=== PATIENT | male | born 2000 | race Caucasian/White ===

== ENCOUNTER 2019-10-16 08:21 | Emergency (ER) | payer BC, MEDICAID, SELFPAY ==
[2019-10-16 08:23] VITALS: BP 145/97; PULSE 110; RESP 16; TEMP 36.2; O2SAT 96; BMI 34.3
--- NOTE | 2019-10-16 08:34 | ED.DCSUM_ITS ---
History of Present Illness Chief Complaint: Wound Informant: Patient, Family Limited: - - MRDD Occurred: Days Mechanism/Context: - - Bite Onset: Days Narrative: Patient is a 19-year-old male with MRDD and autism presenting with a self- inflicted bite wound to his right wrist. Mother states that he has a history of biting his wrist. For the past 3 days he has been biting his wrist more aggres sively. They have tried keeping it bandaged to let it heal but he has been persistent. No reported fever or any other symptoms. Mother went to urgent care to have it checked out and they were concerned and sent him to the emergency room for further evaluation. Mother not sure when his last tetanus was. No other complaints or concerns at this time. Tetanus Immunization: Unknown Past Medical History - Allergies and Home Meds Allergies/Adverse Reactions: Allergies No Known Allergies Allergy (Verified 10/16/19 08:22) Primary Care Physician: Joseph Mccarthy MD [Primary Care Provider] - Past Medical History: - - Autism, developmental delay Surgical History: no surgical history Lives: With Family Smoking Status: Never smoker Alcohol: None Drugs: None Review of Systems General: Denies: Chills, Fever, Sweats Cardiovascular: Denies: Chest pain, Palpitations Respiratory: Denies: Dyspnea, Cough Gastrointestinal: Denies: Abdominal pain, Nausea, Vomiting, Diarrhea Genitourinary: Denies: Dysuria, Frequency Musculoskeletal: Denies: Back pain, Extremity Pain Skin: Reports: Wounds - right wrist . Denies: Rash Neurological: Denies: Headache, Weakness, Numbness Physical Exam Vital Signs/Narrative: Vital Signs Temp Pulse Resp BP Pulse Ox 10/16/19 08:23 97.2 F L 110 H 16 145/97 H 96 Inital Vital Signs reviewed: Yes Right Forearm: Negative for: Contusion, Deformity, Edema, Hematoma, Limited ROM Right Wrist: Abrasion - 3 cm x 1 cm ulcerated wound over the radial aspect of the right wrist/distal forearm. Mild surrounding erythema with granulomatous tissue over the wound. No associated drainage, fluctuance or warmth. No tenderness to palpation.. Negative for: Deformity, Edema, Hematoma, Limited ROM Right Hand: Negative for: Abrasion, Deformity, Edema, Hematoma, Limited ROM General: Well nourished, Well developed Head: Normocephalic, Atraumatic ENT: No Trauma, Moist Mucous Membranes Neck: Nontender, Full ROM Cardiovascular: Regular rate, Regular rhythm, No murmurs Respiratory: No distress, CTA bilaterally, Chest nontender Back: Nontender Skin: Normal color, No rash, - - See above for wound description Neurological: Alert, Cranial nerves II-XII grossly intact, Normal Strength, Normal Sensation Psychological: Normal affect Diagnostic/Tx/Re-eval - Medical Decision Making Patient is evaluated for self-inflicted bite wound to his right wrist. It does not appear infected however patient will be empirically treated with antibiotics. The wound is slightly hypertrophied from repetitive biting and likely scar tissue. Patient is neuro vastly intact. Patient is slightly tachycardic in the emergency room. I suspect this is secondary to agitation. His tetanus will be updated. He is given first dose of Augmentin in the emergency room. Mother is counseled on wound care keeping it clean and trying to prevent him from biting it further. Mother is counseled on signs symptoms require return the emergency room. She verbalizes agreement understand this plan. Patient discharged home in stable condition. ED Disposition - Plan for ED Patient: Disposition: Home or Assisted Living Diagnosis: Human bite of forearm, Injury, self-inflicted Instructions: Human Bite Prescriptions: Amoxicillin/Potassium Clav [Augmentin 875-125 Tablet] 1 ea PO BID #20 tab Prescription Printed Referrals: Joseph Mccarthy MD [Primary Care Provider] - Additional Instructions: Try to keep the wound clean and covered. At this time it does not appear infected however he will be given antibiotics to prevent further infection. Follow-up with primary care doctor.
[2019-10-16] MEDS: Diphth,Pertuss(Acell),Tet Vac 0.5 ML Vial IM (08:42)
[2019-10-16] MEDS: Amox/Clavulanate 875 MG Tablet PO (08:42)
== END 2019-10-16 08:55 | disposition home or self-care (01) ==
LOC: ED 08:52
PROVIDERS: Emergency Provider Emergency Medicine; PCP Family Medicine
DX: S50.871A Other superficial bite of right forearm, initial encounter (principal); X83.8XXA Intentional self-harm by other specified means, initial encounter; Y93.9 Activity, unspecified; Y92.9 Unspecified place or not applicable; F84.0 Autistic disorder; Z79.899 Other long term (current) drug therapy
CPT/HCPCS: 90471; 90715; 99283